=== PATIENT | male | born 1990 | race African-American/Black ===

== ENCOUNTER 2016-11-13 13:27 | Emergency (ER) | payer OTHER ==
[~2016-11-13] VITALS: Ht 182.9 cm; Wt 99.8 kg
[~2016-11-13 13:27] MED LIST: BACTRIM DS TAB1 EACH PO
[2016-11-13 14:33] LABS: URINE BILIRUBIN NEGATIVE (Negative); URINE BLOOD NEGATIVE (Negative); URINE COLOR YELLOW; URINE GLUCOSE-RANDOM* NEGATIVE (Negative); URINE KETONES NEGATIVE (Negative); URINE NITRITE NEGATIVE (Negative); URINE PROTEIN (DIPSTICK) NEGATIVE (Negative); URINE UROBILINOGEN 0.2 E.U./dl (0.2-1.0)
[2016-11-13 14:49] LABS: ABSOLUTE NEUTROPHILS 5.2 thou/uL (1.4-8.2); BASOPHILS 0.5 % (0.0-2.0); EOSINOPHILS 1.1 % (0.0-3.0); HEMATOCRIT 46.1 % (42.0-52.0); HEMOGLOBIN 15.6 gm/dL (14.0-18.0); LYMPHOCYTES 17.6 % (24.0-44.0); MCH 29.9 pg (26.0-34.0); MCHC 33.9 g/dL (28.0-37.0); MCV 88.2 fL (80.0-100.0); MONOCYTES 7.1 % (1.0-8.0); PLATELET COUNT 251 thou/uL (150-400); POLYS 73.7 % (36.0-66.0); RBC 5.22 mil/uL (4.50-6.00); RDW 13.6 % (10.5-14.5); WBC 7.1 thou/uL (4.0-11.0)
[2016-11-13 14:51] LABS: MANUAL DIFF NO
[2016-11-13 14:59] LABS: CALCIUM 9.1 mg/dL (8.5-10.1); CREATININE 1.1 mg/dL (0.7-1.3); POTASSIUM 3.9 mmol/L (3.5-5.1)
[2016-11-13 15:03] LABS: ALBUMIN 4.4 g/dL (3.4-5.0); TOTAL BILIRUBIN 0.5 mg/dL (<0.1-1.0); TOTAL PROTEIN 7.7 g/dL (6.4-8.2)
[2016-11-13] MEDS ORDERED: DOXYCYCLINE 10100 MG PO (15:31)
[2016-11-13] MEDS ORDERED: NAPROSYN500 MG PO (15:31)
[2016-11-13 15:57] VITALS: BP 128/66
== END 2016-11-13 15:33 | disposition home or self-care (01) ==
LOC: ER 13:27
PROVIDERS: Nurse Practitioner Family
DX: N45.1 Epididymitis (principal); N43.3 Hydrocele, unspecified; F17.210 Nicotine dependence, cigarettes, uncomplicated; F10.99 Alcohol use, unspecified with unspecified alcohol-induced disorder; F12.10 Cannabis abuse, uncomplicated

== ENCOUNTER → 2018-12-11 | Day surgery (SDC) | payer OTHER ==
[~2018-12-11] MED LIST changes: +DOXYCYCLINE 10100 MG PO; +NAPROSYN500 MG PO; +NORCO 5-325 TA1 EAC1 PO
--- NOTE | ~2018-12-11 | H ---
[facility] [place] [address] HISTORY AND PHYSICAL Name: REYES EKNNY [place] [facility] [place]#: [id number] Admission: 12/11/18 ������������������ Attend Phys: Maximilian Josue MD Discharge: ������������������ Date of : 89 Report #: [id number] THIS REPORT FOR: //name// CC: FAM unknown Oseas Noriega DO Maximilian Josue PREOPERATIVE DIAGNOSIS: Symptomatic epigastric hernia with chronic incarceration. HISTORY OF PRESENT ILLNESS: The patient is a 27-year-old who says he has had a hernia above the umbilicus all his life. He apparently has been examined by physicians who told him he did not have to do anything unless it was not bothering him. 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 Saturday, the patient was getting out of bed and noticed pain in the site of the hernia. The hernia was larger. The hernia content was also firmer. Now any time that he does anything using his core muscle, he develops pain. The patient had a bad pain with sneezing. There is a tugging feeling. He also felt constipated. The pain has improved in the last couple of days. He has a little bit of nausea, no vomiting. He had also been eating less in the last few days. The patient was recommended to come to see me on an urgent basis because of the pain. The patient is found to have a pretty large epigastric hernia. The fascia defect probably is not real large compared to what is pushed out and is not reducible. Probably chronic incarcerated. He is recommended to have the hernia repaired. PAST MEDICAL HISTORY: The patient is healthy. He denies any heart disease, no high blood pressure, no diabetes, no lung disease. No liver disease, no kidney disease, no bleeding disorder. No history of blood clot. PAST SURGICAL HISTORY: Right shoulder repair for labrum tear, right knee surgery for meniscus injury. As a child, he had tubes in his ears, tonsil and adenoidectomy. MEDICATIONS: He is not on any medication. ALLERGIES: He does not have any allergies. He did say hydrocodone makes him very sleepy. FAMILY HISTORY: Mother of cancer. Father and maternal grandfather have had umbilical hernia surgery. 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 He occasionally smokes. Drinks about one time a month. REVIEW OF SYSTEMS: The patient has some ear issues. No chest pain, shortness [facility] [address] [place] [address] HISTORY AND PHYSICAL Name: REYES KENNY Room #: REG [facility].#: [id number] Admission: 12/11/18 ������������������ Attend Phys: Maximilian Josue MD Discharge: ������������������ Date of : 89 Report #: [id number] of breath, palpitation. No numbness or weakness. PHYSICAL EXAMINATION: GENERAL: The patient is a well-nourished male, in no acute distress. HEENT: Pupils react to light. Extraocular muscles are intact. Oropharynx is clear. NECK: Soft and supple, no masses. LUNGS: Clear to auscultation. HEART: Regular rate and rhythm. No murmur or gallop. ABDOMEN: The patient does have a large epigastric hernia. It is firm, but not hard. There is no redness in this area. I am not able to reduce it. There is no abdominal mass, ascites, guarding or rigidity. EXTREMITIES: No cyanosis, clubbing or edema. Motor function and sensory exam are unremarkable. IMPRESSION: The patient is a 27-year-old with a symptomatic epigastric hernia. This started on Saturday. He has had the hernia for a long-long time. On Saturday, it got larger, more painful, and firmer. The patient is confirmed to have an epigastric hernia. The fascia defect probably is not really large, but the part that is protruded is quite large, measuring about 5 cm. It is not reducible. The patient is recommended to have this repaired and he is brought in for the procedure. Procedure was discussed. Risk of bleeding, infection, hernia recurrence, mesh infection was discussed. Use of the mesh was recommended. Risk of mesh infection was discussed. The patient wishes to proceed. He will be scheduled for tomorrow. ��������������������������������������������� ���������������������������������������� By: ��������������������������������������������� 51 Maximilian Josue MD /nt
--- NOTE | ~2018-12-11 | O ---
[facility] [place] [address] OPERATIVE REPORT Name: REYES KENNY Room #: REG [facility].#: [id number] Admission: 12/11/18 ������������������ Attend Phys: Maximilian Josue MD Discharge: ������������������ Date of : 89 Report #: [id number] THIS REPORT FOR: //name// CC: FAM unknown Oseas Ashley DATE OF SERVICE: 12/11/2018 PREOPERATIVE DIAGNOSIS: Painful epigastric hernia, likely chronic incarcerated. POSTOPERATIVE DIAGNOSIS: Painful epigastric hernia, likely chronic incarcerated. PROCEDURES PERFORMED: Repair of symptomatic epigastric hernia. SURGEON: Maximilian Josue M.D. COMPLICATIONS: None. ESTIMATED BLOOD LOSS: 5 mL. FINDINGS: The hernia contained mostly properitoneal fat, small hernia sac was identified without anything in it. DESCRIPTION OF PROCEDURE: With the patient under general anesthesia, IV antibiotic was administered. Abdomen was prepped and draped in sterile fashion. A 0.25% Marcaine was used to anesthetize the skin. A transverse incision was made at the hernia site, incisions about 3-4 cm in length. After incising through the skin and subcutaneous tissue, the hernia content was identified. This fat is different than the subcutaneous fat. This fat was isolated and dissected away from the subcutaneous fat down to the level of the fascia. The fascia defect is about 2 cm x about a cm in dimension. The fat that protruded through was mostly properitoneal fat. This was too large to be pushed back to the fascia defect. The majority of the fat was then cauterized and resected. Towards the very bottom of the last tissue, the hernia sac was found. The hernia sac was opened and there was nothing inside the hernia sac. The peritoneum was then closed. The hernia sac was then closed with 4-0 PDS. The rest of the fat and hernia sac was then easily pushed back underneath the fascia. Properitoneal dissection was then performed using cautery and blunt dissection. The peritoneum fairly easily from the wall. The fascia edges were quite thin and the linea alba which was white, laterally where the muscles were located is much better. After the properitoneal was dissected free, a large Ventralex ST patch was used. This was folded, placed through the fascia without difficulty. Using the strap, the patch was noted to be completely open and not kinked. The fascia defect was then closed with 0 PDS in [address] [address] OPERATIVE REPORT Name: REYES KENNY [place] [facility] [place] [id number] Admission: 12/11/18 ������������������ Attend Phys: Maximilian Josue MD Discharge: ������������������ Date of : 89 Report #: [id number] horizontal mattress fashion incorporating the strap with it. Two separate 0 Prolene suture was used. The strap was then cut off at the fascia level. Irrigation was performed. Skin was then closed with 5-0 PDS. Steri-Strips applied, 4 x 4, OpSite was then used for dressing. The patient tolerated the procedure well and was taken to recovery room. ��������������������������������������������� ���������������������������������������� By: ��������������������������������������������� [id number] Maximilian Josue MD /nt
== END | disposition home or self-care (01) ==
LOC: OR 10:16
DX: K43.6 Other and unspecified ventral hernia with obstruction, without gangrene (principal); Z98.890 Other specified postprocedural states; Z87.440 Personal history of urinary (tract) infections
CPT/HCPCS: 50010; 50101; 50386; 50403; 50621; 56524; 56525; 62110; 62900; 70005